=== PATIENT | male | born 1950 | race Caucasian/White ===

== ENCOUNTER 2016-11-01 08:28 | Emergency (ER) | payer OTHER, MEDICAID ==
[~2016-11-01] VITALS: Ht 180.3 cm; Wt 78.0 kg
[2016-11-01 08:33] VITALS: BP_SYST 136
[2016-11-01] MEDS ORDERED: KETOROLAC TROMETHAMINE 30 MG VIAL IVP ONE (09:00)
[2016-11-01 09:03] LABS: BILIRUBIN,URINE NEGATIVE (NEGATIVE); BLOOD, URINE NEGATIVE (NEGATIVE); CLARITY/URINE CLEAR (CLEAR); COLOR,URINE YELLOW (YELLOW); GLUCOSE,URINE NEGATIVE (NEGATIVE); KETONES,URINE NEGATIVE (NEGATIVE); LEUKOCYTE ESTERASE ,URINE NEGATIVE (NEGATIVE); NITRITE, URINE NEGATIVE (NEGATIVE); PROTEIN URINE NEGATIVE (NEGATIVE); UROBILINOGEN,URINE 0.2 (0.2-1.0)
[2016-11-01 09:07] LABS: EOSINOPHILS # (AUTO) 0.1 K/uL (0.0-0.4); EOSINOPHILS % (AUTO) 1.2 % (0.0-4.0); HEMATOCRIT 47.6 % (36-54); HEMOGLOBIN 15.9 g/dL (14.0-18.0); LYMPHOCYTES # (AUTO) 1.3 K/uL (1.0-5.5); LYMPHOCYTES % (AUTO) 26.1 % (20.5-51.5); MEAN CORPUSCULAR HEMOGLOBIN 34 pg (27-31); MEAN CORPUSCULAR HGB CONC 33 % (32-36); MEAN CORPUSCULAR VOLUME 103 fL (79.0-98.0); MONOCYTES # (AUTO) 0.3 K/uL (0.0-1.0); MONOCYTES % (AUTO) 6.6 % (1.7-9.3); PLATELET COUNT (AUTO) 199 K/uL (130-430); RED BLOOD CELL COUNT(AUTO) 4.63 MIL/uL (4.2-6.2); RED CELL DISTRIBUTION WIDTH 12.9 % (9.0-15.0); WHITE BLOOD COUNT (AUTO) 4.9 K/uL (4.8-10.8)
[2016-11-01 09:12] LABS: CALCIUM 9.1 mg/dL (8.4-11.0); CREATININE 1.12 mg/dL (0.55-1.30); POTASSIUM 4.3 mmol/L (3.5-5.1)
[2016-11-01 09:13] LABS: BASOPHILS % (AUTO) 0.7 % (0.0-2.0); NEUTROPHILS # (AUTO) 3.2 K/uL (1.8-7.7); NEUTROPHILS % (AUTO) 65.4 % (40.0-70.0)
[2016-11-01 09:18] LABS: ALBUMIN 3.9 g/dL (3.4-4.8); TOTAL BILIRUBIN 0.5 mg/dL (0.0-1.0); TOTAL PROTEIN, SERUM 7.7 g/dL (6.4-8.3)
[2016-11-01 11:00] VITALS: BP_SYST 136
== END 2016-11-01 11:00 | disposition home or self-care (01) ==
LOC: SED 08:28
DX: R10.11 Right upper quadrant pain (principal)
CPT/HCPCS: 36415; 74176; 80053; 81003; 82150; 83690; 85025; 96374; 99285; J1885

== ENCOUNTER 2019-01-31 08:07 | Emergency (ER) | payer MEDICARE, MEDICAID ==
[~2019-01-31] VITALS: Ht 177.8 cm; Wt 78.0 kg
--- NOTE | 2019-01-31 08:18 | NUR ---
Patient to ER bed 3 to gown for evaluation. Side rails up. Report given to Ish NINA.
[2019-01-31 08:20] VITALS: BP_SYST 137
--- NOTE | 2019-01-31 08:25 | NUR ---
Received report from Don. Pt is here for c/o RUQ pain radiating to left medial back for 2 days with diarrhea x1, no nausea or vomiting. 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 Pt ambulates with steady gait, no acute distress noted.
--- NOTE | 2019-01-31 08:26 | NUR ---
Dr. Padilla at bedside to assess pt.
--- NOTE | 2019-01-31 09:14 | NUR ---
Pt ambulated to restroom without distress for urine sample.
--- NOTE | 2019-01-31 09:20 | NUR ---
Pt states he did not want to have IV started and does not need pain medication at this time, pain is 4/10 at the moment. No acute distress noted.
[2019-01-31 09:38] LABS: HEMATOCRIT 42.8 % (36-54); HEMOGLOBIN 14.9 g/dL (14.0-18.0); MEAN CORPUSCULAR HEMOGLOBIN 37 pg (27-31); MEAN CORPUSCULAR HGB CONC 35 % (32-36); MEAN CORPUSCULAR VOLUME 106 fL (79.0-98.0); PLATELET COUNT (AUTO) 190 K/uL (130-430); RED BLOOD CELL COUNT(AUTO) 4.03 MIL/uL (4.2-6.2); RED CELL DISTRIBUTION WIDTH 13.7 % (9.0-15.0); WHITE BLOOD COUNT (AUTO) 3.5 K/uL (4.8-10.8)
[2019-01-31 09:39] LABS: CALCIUM 8.6 mg/dL (8.4-11.0); CREATININE 0.92 mg/dL (0.55-1.30); POTASSIUM 3.7 mmol/L (3.5-5.1)
[2019-01-31 09:45] LABS: ALBUMIN 3.5 g/dL (3.4-4.8); PROTHROMBIN TIME 10.4 SECS (9.5-12.5); TOTAL BILIRUBIN 0.5 mg/dL (0.0-1.0)
[2019-01-31 10:29] LABS: BILIRUBIN,URINE NEGATIVE (NEGATIVE); BLOOD, URINE NEGATIVE (NEGATIVE); CLARITY/URINE CLEAR (CLEAR); COLOR,URINE YELLOW (YELLOW); GLUCOSE,URINE NEGATIVE (NEGATIVE); KETONES,URINE NEGATIVE (NEGATIVE); LEUKOCYTE ESTERASE ,URINE NEGATIVE (NEGATIVE); NITRITE, URINE NEGATIVE (NEGATIVE); PH,URINE >=9.0 (5.0-8.0); PROTEIN URINE 1+ (NEGATIVE); UROBILINOGEN,URINE 0.2 (0.2-1.0)
[2019-01-31 10:39] LABS: RBC,URINE 0-3 /HPF (0-3); WBC,URINE 0-3 /HPF (0-3)
[2019-01-31 10:40] LABS: BACTERIA,URINE RARE /HPF (None Seen)
[2019-01-31 11:05] LABS: BAND % (MANUAL) 0 % (0-6); BASOPHILS % (MANUAL) 0 % (0-2); EOSINOPHILS % (MANUAL) 0 % (0-7); LYMPHOCYTES % (MANUAL) 44 % (20-46); MONOCYTES % (MANUAL) 4 % (0-11)
--- NOTE | 2019-01-31 11:49 | NUR ---
Pt went on wheelchair with tech for CT abd without contrast. No acute distress noted.
[2019-01-31 12:14] VITALS: BP_SYST 130
--- NOTE | 2019-01-31 12:14 | NUR ---
Patient given written and verbal discharge instructions and verbalizes understanding. ER MD discussed with patient the results and treatment provided. Patient in stable condition. ID arm band removed.Opportunity for questions provided and answered. Medication side effect fact sheet provided.
== END 2019-01-31 12:14 | disposition home or self-care (01) ==
LOC: SED 08:07
DX: R10.11 Right upper quadrant pain (principal)
CPT/HCPCS: 36415; 76700-TC; 80053; 81000-TC; 83690-TC; 85007; 85027; 85610-TC; 85730-TC; 99284

== ENCOUNTER 2019-02-13 09:04 | Emergency (ER) | payer MEDICARE, MEDICAID ==
[~2019-02-13] VITALS: Ht 177.8 cm; Wt 78.0 kg
[2019-02-13 09:05] VITALS: BP_SYST 135
[2019-02-13] MEDS ORDERED: LIDOCAINE 1% 10 MG/ML, 20 ML MDV INJ ONE (09:30)
[2019-02-13 10:51] LABS: BASOPHILS # (AUTO) 0.1 K/uL (0.0-0.2); BASOPHILS % (AUTO) 1.1 % (0.0-2.0); EOSINOPHILS # (AUTO) 0.1 K/uL (0.0-0.4); EOSINOPHILS % (AUTO) 2.2 % (0.0-4.0); HEMATOCRIT 44.7 % (36-54); HEMOGLOBIN 15.7 g/dL (14.0-18.0); LYMPHOCYTES # (AUTO) 1.2 K/uL (1.0-5.5); LYMPHOCYTES % (AUTO) 22.4 % (20.5-51.5); MEAN CORPUSCULAR HEMOGLOBIN 38 pg (27-31); MEAN CORPUSCULAR HGB CONC 35 % (32-36); MEAN CORPUSCULAR VOLUME 106 fL (79.0-98.0); MONOCYTES # (AUTO) 0.4 K/uL (0.0-1.0); NEUTROPHILS # (AUTO) 3.5 K/uL (1.8-7.7); NEUTROPHILS % (AUTO) 67.3 % (40.0-70.0); PLATELET COUNT (AUTO) 162 K/uL (130-430); RED CELL DISTRIBUTION WIDTH 13.7 % (9.0-15.0); WHITE BLOOD COUNT (AUTO) 5.2 K/uL (4.8-10.8)
[2019-02-13] MEDS ORDERED: IOHEXOL 100 ML IV ONE (10:56)
[2019-02-13 11:01] LABS: ANION GAP 14 (5-15); CALCIUM 9.5 mg/dL (8.4-11.0); CHLORIDE 100 mmol/L (98-107); CREATININE 1.21 mg/dL (0.55-1.30); GLUCOSE 86 mg/dL (70-99); SODIUM SERUM 137 mmol/L (136-145); UREA NITROGEN, BLOOD 7 mg/dL (8-21)
[2019-02-13] MEDS ORDERED: NACL 0.9% 1,000 ML IV ONE (11:15)
[2019-02-13 12:55] VITALS: BP_SYST 128
== END 2019-02-13 12:55 | disposition home or self-care (01) ==
LOC: SED 09:04
DX: L02.11 Cutaneous abscess of neck (principal); Z85.038 Personal history of other malignant neoplasm of large intestine
CPT/HCPCS: 10060; 36415; 70491; 85025; 80048; 99284; J2001; J7030; Q9967

== ENCOUNTER 2019-02-15 09:11 | Emergency (ER) | payer MEDICARE, MEDICAID ==
[~2019-02-15] VITALS: Ht 177.8 cm; Wt 78.0 kg
[2019-02-15 09:11] VITALS: BP_SYST 140
[2019-02-15 10:05] VITALS: BP_SYST 140
== END 2019-02-15 10:05 | disposition home or self-care (01) ==
LOC: SED 09:11
DX: Z48.01 Encounter for change or removal of surgical wound dressing (principal); Z85.038 Personal history of other malignant neoplasm of large intestine
CPT/HCPCS: 99281

== ENCOUNTER 2019-03-20 08:13 | Inpatient (IN) | payer MEDICARE, MEDICAID ==
[~2019-03-20] VITALS: Ht 190.5 cm; Wt 79.4 kg
[2019-03-20] MEDS ORDERED: ASPIRIN 325 MG TABLET PO ONE (08:30)
[2019-03-20 08:50] LABS: EOSINOPHILS # (AUTO) 0.1 K/uL (0.0-0.4); EOSINOPHILS % (AUTO) 1.4 % (0.0-4.0); HEMATOCRIT 43.3 % (36-54); HEMOGLOBIN 15.1 g/dL (14.0-18.0); LYMPHOCYTES # (AUTO) 1.8 K/uL (1.0-5.5); LYMPHOCYTES % (AUTO) 39.2 % (20.5-51.5); MEAN CORPUSCULAR HEMOGLOBIN 38 pg (27-31); MEAN CORPUSCULAR HGB CONC 35 % (32-36); MEAN CORPUSCULAR VOLUME 108 fL (79.0-98.0); MONOCYTES # (AUTO) 0.4 K/uL (0.0-1.0); MONOCYTES % (AUTO) 8.4 % (1.7-9.3); NEUTROPHILS # (AUTO) 2.3 K/uL (1.8-7.7); PLATELET COUNT (AUTO) 188 K/uL (130-430); RED CELL DISTRIBUTION WIDTH 13.9 % (9.0-15.0); WHITE BLOOD COUNT (AUTO) 4.7 K/uL (4.8-10.8)
[2019-03-20 09:04] LABS: ANION GAP 6 (5-15); CALCIUM 9.3 mg/dL (8.4-11.0); CHLORIDE 100 mmol/L (98-107); CREATININE 0.99 mg/dL (0.55-1.30); GLUCOSE 137 mg/dL (70-99); POTASSIUM 4.1 mmol/L (3.5-5.1); SODIUM SERUM 134 mmol/L (136-145); UREA NITROGEN, BLOOD 11 mg/dL (8-21)
[2019-03-20 09:10] LABS: ALANINE AMINOTRANSFERASE 45 U/L (12-78); ALBUMIN 3.6 g/dL (3.4-4.8); ASPARTATE AMINOTRANSFERASE 48 U/L (10-37); TOTAL BILIRUBIN 0.3 mg/dL (0.0-1.0)
[2019-03-20 11:22] VITALS: BP_SYST 149
[2019-03-20 11:42] VITALS: BP_SYST 149
[2019-03-20] MEDS ORDERED: PANTOPRAZOLE SODIUM 40 MG TAB PO ONE (14:00)
[2019-03-20] MEDS: MAG-AL HYDROX/SIMETH 30 ML UDC PO PRN ×2 (14:36→20:29)
[2019-03-20 16:35] VITALS: BP_SYST 123
[2019-03-20 20:00] VITALS: BP_SYST 139
[2019-03-21] MEDS ORDERED: TEMAZEPAM 15 MG CAPSULE PO PRN (00:30)
[2019-03-21 02:16] VITALS: BP_SYST 136
[2019-03-21 07:54] VITALS: BP_SYST 140
[2019-03-21] MEDS ORDERED: PANTOPRAZOLE SODIUM 40 MG TAB PO SCH (09:00)
[2019-03-21 12:11] VITALS: BP_SYST 141
[2019-03-21 12:21] VITALS: BP_SYST 141
== END 2019-03-21 12:50 | disposition home or self-care (01) | DRG 206 ==
LOC: SED 08:13 → STU 10:30
PROVIDERS: ADMIT Internal Medicine Hospice and Palliative Medicine; ATTEND Internal Medicine Hospice and Palliative Medicine
DX: M94.0 Chondrocostal junction syndrome [Tietze] (principal); I10 Essential (primary) hypertension; Z82.49 Family history of ischemic heart disease and other diseases of the circulatory system; Z85.048 Personal history of other malignant neoplasm of rectum, rectosigmoid junction, and anus
CPT/HCPCS: 36415; 71045; 80053; 82550-TC; 83880; 84484; 85025; 93005; 93017; 99285; G0378; J7030

== ENCOUNTER 2019-04-10 12:48 | Emergency (ER) | payer MEDICARE, MEDICAID ==
[~2019-04-10] VITALS: Ht 188 cm; Wt 78.0 kg
[2019-04-10 13:37] VITALS: BP_SYST 136
--- NOTE | 2019-04-10 15:12 | NUR ---
Called pt x 1 , no answer
--- NOTE | 2019-04-10 15:17 | NUR ---
Called pt x 2 no answer
--- NOTE | 2019-04-10 15:26 | NUR ---
Called pt x 3 no answer, LWBS
== END 2019-04-10 15:26 | disposition left against medical advice (07) ==
LOC: SED 12:48
DX: R10.9 Unspecified abdominal pain (principal); Z53.21 Procedure and treatment not carried out due to patient leaving prior to being seen by health care provider

== ENCOUNTER 2019-07-13 11:26 | Emergency (ER) | payer OTHER, MEDICAID ==
[~2019-07-13] VITALS: Ht 180.3 cm; Wt 78.0 kg
[2019-07-13 11:36] VITALS: BP_SYST 141
[2019-07-13 15:10] VITALS: BP_SYST 141
== END 2019-07-13 15:10 | disposition home or self-care (01) ==
LOC: SED 11:26
DX: R10.11 Right upper quadrant pain (principal); Z85.038 Personal history of other malignant neoplasm of large intestine
CPT/HCPCS: 76700-TC; 99284

== ENCOUNTER 2019-08-06 15:16 | Emergency (ER) | payer OTHER, MEDICAID ==
[~2019-08-06] VITALS: Ht 180.3 cm; Wt 78.0 kg
[2019-08-06 15:16] VITALS: BP_SYST 127
[2019-08-06] MEDS ORDERED: NACL 0.9% 1,000 ML IV ONE (15:33)
[2019-08-06] MEDS ORDERED: MORPHINE 4 MG/ML INJ. SYRINGE IVP ONE (15:45)
[2019-08-06] MEDS ORDERED: ONDANSETRON HCL 4 MG/2 ML VIAL IVP ONE (15:45)
[2019-08-06 16:34] LABS: BASOPHILS # (AUTO) 0.1 K/uL (0.0-0.2); BASOPHILS % (AUTO) 0.7 % (0.0-2.0); EOSINOPHILS # (AUTO) 0.1 K/uL (0.0-0.4); HEMATOCRIT 43.8 % (36-54); HEMOGLOBIN 15.4 g/dL (14.0-18.0); LYMPHOCYTES # (AUTO) 1.8 K/uL (1.0-5.5); LYMPHOCYTES % (AUTO) 24.2 % (20.5-51.5); MEAN CORPUSCULAR HEMOGLOBIN 38 pg (27-31); MEAN CORPUSCULAR HGB CONC 35 % (32-36); MEAN CORPUSCULAR VOLUME 107 fL (79.0-98.0); MONOCYTES # (AUTO) 0.7 K/uL (0.0-1.0); MONOCYTES % (AUTO) 9.4 % (1.7-9.3); NEUTROPHILS # (AUTO) 4.9 K/uL (1.8-7.7); NEUTROPHILS % (AUTO) 64.7 % (40.0-70.0); PLATELET COUNT (AUTO) 199 K/uL (130-430); RED BLOOD CELL COUNT(AUTO) 4.11 MIL/uL (4.2-6.2); RED CELL DISTRIBUTION WIDTH 13.8 % (9.0-15.0); WHITE BLOOD COUNT (AUTO) 7.6 K/uL (4.8-10.8)
[2019-08-06 16:39] LABS: ANION GAP 9 (5-15); CALCIUM 8.6 mg/dL (8.4-11.0); CHLORIDE 93 mmol/L (98-107); CREATININE 0.98 mg/dL (0.55-1.30); GLUCOSE 132 mg/dL (70-99); POTASSIUM 4.2 mmol/L (3.5-5.1); SODIUM SERUM 128 mmol/L (136-145); UREA NITROGEN, BLOOD 15 mg/dL (8-21)
[2019-08-06 16:40] LABS: BILIRUBIN,URINE NEGATIVE (NEGATIVE); BLOOD, URINE NEGATIVE (NEGATIVE); CLARITY/URINE CLEAR (CLEAR); COLOR,URINE YELLOW (YELLOW); GLUCOSE,URINE NEGATIVE (NEGATIVE); KETONES,URINE NEGATIVE (NEGATIVE); LEUKOCYTE ESTERASE ,URINE NEGATIVE (NEGATIVE); NITRITE, URINE NEGATIVE (NEGATIVE); PH,URINE 7.5 (5.0-8.0); PROTEIN URINE NEGATIVE (NEGATIVE); UROBILINOGEN,URINE 0.2 (0.2-1.0)
[2019-08-06 16:43] LABS: PROTHROMBIN TIME 10.1 SECS (9.5-12.5)
[2019-08-06 16:54] LABS: ALANINE AMINOTRANSFERASE 103 U/L (12-78); ALBUMIN 3.6 g/dL (3.4-4.8); AMYLASE 39 U/L (0-100); ASPARTATE AMINOTRANSFERASE 81 U/L (10-37); LIPASE 107 U/L (73-393); TOTAL BILIRUBIN 0.8 mg/dL (0.0-1.0)
[2019-08-06 17:31] VITALS: BP_SYST 137
== END 2019-08-06 17:31 | disposition home or self-care (01) ==
LOC: SED 15:16
DX: E87.1 Hypo-osmolality and hyponatremia (principal); N23 Unspecified renal colic; R74.0 Nonspecific elevation of levels of transaminase and lactic acid dehydrogenase [LDH]; R19.7 Diarrhea, unspecified; Z85.038 Personal history of other malignant neoplasm of large intestine
CPT/HCPCS: 36415; 71045; 74176; 80053; 81003; 82150; 82550; 83605; 83690; 84484; 85025; 85610; 85730; 87040; 93005; 96361; 96374; 96375; 99284; J2270; J2405; J7030

== ENCOUNTER 2019-08-29 17:07 | Emergency (ER) | payer OTHER, MEDICAID, SELFPAY ==
[~2019-08-29] VITALS: Ht 180.3 cm; Wt 78.0 kg
[2019-08-29 17:08] VITALS: BP_SYST 143
[2019-08-29 17:45] VITALS: BP_SYST 143
== END 2019-08-29 17:45 | disposition home or self-care (01) ==
LOC: EEVIPCON 17:07 → SED 17:07
DX: J02.9 Acute pharyngitis, unspecified (principal); Z85.038 Personal history of other malignant neoplasm of large intestine; Z20.828 Contact with and (suspected) exposure to other viral communicable diseases
CPT/HCPCS: 99282; U0002

== ENCOUNTER 2019-10-29 07:33 | Emergency (ER) | payer OTHER, MEDICAID ==
[~2019-10-29] VITALS: Ht 180.3 cm; Wt 78.0 kg
[2019-10-29 07:44] VITALS: BP_SYST 129
[2019-10-29] MEDS ORDERED: ONDANSETRON HCL 4 MG/2 ML VIAL IM ONE (08:30)
[2019-10-29] MEDS ORDERED: MORPHINE 4 MG/ML INJ. SYRINGE IM ONE ×2 (08:30→09:45)
[2019-10-29] MEDS ORDERED: ASPIRIN 81 MG TAB.CHEW PO ONE (08:30)
[2019-10-29 08:44] LABS: BASOPHILS % (AUTO) 0.6 % (0.0-2.0); EOSINOPHILS % (AUTO) 0.5 % (0.0-4.0); HEMATOCRIT 44.7 % (36-54); HEMOGLOBIN 15.7 g/dL (14.0-18.0); LYMPHOCYTES # (AUTO) 1.3 K/uL (1.0-5.5); LYMPHOCYTES % (AUTO) 18.4 % (20.5-51.5); MEAN CORPUSCULAR HEMOGLOBIN 37 pg (27-31); MEAN CORPUSCULAR HGB CONC 35 % (32-36); MEAN CORPUSCULAR VOLUME 106 fL (79.0-98.0); MONOCYTES # (AUTO) 0.5 K/uL (0.0-1.0); MONOCYTES % (AUTO) 7.2 % (1.7-9.3); NEUTROPHILS % (AUTO) 73.3 % (40.0-70.0); PLATELET COUNT (AUTO) 180 K/uL (130-430); RED BLOOD CELL COUNT(AUTO) 4.23 MIL/uL (4.2-6.2); RED CELL DISTRIBUTION WIDTH 13.5 % (9.0-15.0); WHITE BLOOD COUNT (AUTO) 6.9 K/uL (4.8-10.8)
[2019-10-29 08:59] LABS: ANION GAP 11 (5-15); CHLORIDE 100 mmol/L (98-107); CREATININE 0.99 mg/dL (0.55-1.30); GLUCOSE 103 mg/dL (70-99); POTASSIUM 4.1 mmol/L (3.5-5.1); SODIUM SERUM 136 mmol/L (136-145); UREA NITROGEN, BLOOD 8 mg/dL (8-21)
[2019-10-29 09:05] LABS: ALANINE AMINOTRANSFERASE 72 U/L (12-78); AMYLASE 41 U/L (0-100); ASPARTATE AMINOTRANSFERASE 44 U/L (10-37); LIPASE 88 U/L (73-393); TOTAL BILIRUBIN 0.6 mg/dL (0.0-1.0)
[2019-10-29 09:09] LABS: PROTHROMBIN TIME 9.9 SECS (9.5-12.5)
[2019-10-29] MEDS ORDERED: KETOROLAC TROMETHAMINE 60 MG/2 ML VIAL IM ONE (09:15)
[2019-10-29 09:22] LABS: BILIRUBIN,URINE NEGATIVE (NEGATIVE); BLOOD, URINE NEGATIVE (NEGATIVE); COLOR,URINE YELLOW (YELLOW); GLUCOSE,URINE NEGATIVE (NEGATIVE); KETONES,URINE TRACE (NEGATIVE); LEUKOCYTE ESTERASE ,URINE NEGATIVE (NEGATIVE); NITRITE, URINE NEGATIVE (NEGATIVE); PH,URINE 8.5 (5.0-8.0); PROTEIN URINE NEGATIVE (NEGATIVE); UROBILINOGEN,URINE 0.2 (0.2-1.0)
[2019-10-29 09:26] LABS: CLARITY/URINE SLIGHTLY HAZY (CLEAR)
[2019-10-29 09:57] VITALS: BP_SYST 128
== END 2019-10-29 09:57 | disposition home or self-care (01) ==
LOC: SED 07:33
DX: M62.830 Muscle spasm of back (principal)
CPT/HCPCS: 36415; 71045; 72131; 74176; 80053; 81003; 82150; 82550; 83690; 84484; 85025; 85610; 85730; 93005; 96372; 99284; J1885; J2270; J2405; 99285

== ENCOUNTER 2019-10-30 04:48 | Emergency (ER) | payer OTHER, MEDICAID ==
[~2019-10-30] VITALS: Ht 180.3 cm; Wt 78.0 kg
[2019-10-30 05:30] VITALS: BP_SYST 118
--- NOTE | 2019-10-30 05:30 | NUR ---
pt ambulatory to bed 7 for evaluation
--- NOTE | 2019-10-30 05:38 | NUR ---
ER Dr. Devlin at bedside examining patient.
[2019-10-30] MEDS ORDERED: CARISOPRODOL 350 MG TABLET PO ONE (06:00)
[2019-10-30] MEDS ORDERED: OXYCODONE/ACETAMINOPHEN *10*mg/325 mg TABLET PO ONE (06:00)
[2019-10-30] MEDS ORDERED: KETOROLAC TROMETHAMINE 60 MG/2 ML VIAL IM ONE (06:00)
--- NOTE | 2019-10-30 06:34 | NUR ---
Patient given written and verbal discharge instructions and verbalizes understanding. ER MD Devlin discussed with patient the results and treatment provided. Patient in stable condition. ID arm band removed. Rx of naproxin and flexeril given. Patient educated on pain management and to follow up with PMD. Pain Scale 7/10. Opportunity for questions provided and answered. Medication side effect fact sheet provided.
[2019-10-30 06:37] VITALS: BP_SYST 118
== END 2019-10-30 06:37 | disposition home or self-care (01) ==
LOC: SED 04:48
DX: S39.012A Strain of muscle, fascia and tendon of lower back, initial encounter (principal); X50.9XXA Other and unspecified overexertion or strenuous movements or postures, initial encounter; Y93.89 Activity, other specified; Y92.89 Other specified places as the place of occurrence of the external cause; Y99.8 Other external cause status
CPT/HCPCS: 96372; 99283; J1885

== ENCOUNTER 2019-11-02 03:50 | Emergency (ER) | payer OTHER, MEDICAID ==
[~2019-11-02] VITALS: Ht 180.3 cm; Wt 78.0 kg
[2019-11-02 03:55] VITALS: BP_SYST 114
--- NOTE | 2019-11-02 03:55 | NUR ---
Patient to ER bed 7 to gown for evaluation. Side rails up. Report given to LARY NINA/LOUISA NINA.
--- NOTE | 2019-11-02 03:58 | NUR ---
ER at bedside examining patient.
--- NOTE | 2019-11-02 04:00 | NUR ---
Pt presents to the ER for back pain x 5 days. Pt had multiple visits to the ER for the back pain. Pt came in 10/29/19 and 10/30/19. Pt states pain has been constant since time of injury. Prescribed Naprosyn 500mg and Flexeril 10 mg w/ no relief. Denies frequent urination, fever, abdominal pain, sob, chest pain.
[2019-11-02] MEDS ORDERED: MORPHINE 4 MG/ML INJ. SYRINGE IM ONE (04:45)
--- NOTE | 2019-11-02 05:25 | NUR ---
Pt was admitted for pain management for lower back pain to ER. Pt was advised he will need IV placement to be admitted to the hospital, he agreed after educating the patient on starting the IV placment and access for medications to be given. Two attempts were done for IV placement, after the second I asked KELLE Meza to start the IV. Patient declined IV placement and morphine IV. KELLE Kovacs went to the room to discuss IV placement to be admitted and recieve pain medication. Pt insisted oral morphine. Pt refused to KELLE Kovacs and declined to sign rashida SAEZ eloped.
[2019-11-02 05:39] LABS: BASOPHILS # (AUTO) 0.1 K/uL (0.0-0.2); EOSINOPHILS # (AUTO) 0.2 K/uL (0.0-0.4); EOSINOPHILS % (AUTO) 3.3 % (0.0-4.0); HEMOGLOBIN 14.4 g/dL (14.0-18.0); LYMPHOCYTES # (AUTO) 1.8 K/uL (1.0-5.5); MEAN CORPUSCULAR HEMOGLOBIN 37 pg (27-31); MEAN CORPUSCULAR HGB CONC 34 % (32-36); MONOCYTES # (AUTO) 0.5 K/uL (0.0-1.0); MONOCYTES % (AUTO) 8.1 % (1.7-9.3); NEUTROPHILS # (AUTO) 3.7 K/uL (1.8-7.7); NEUTROPHILS % (AUTO) 58.6 % (40.0-70.0); PLATELET COUNT (AUTO) 170 K/uL (130-430); RED BLOOD CELL COUNT(AUTO) 3.94 MIL/uL (4.2-6.2); RED CELL DISTRIBUTION WIDTH 13.3 % (9.0-15.0); WHITE BLOOD COUNT (AUTO) 6.2 K/uL (4.8-10.8)
[2019-11-02 05:43] LABS: MEAN CORPUSCULAR VOLUME 107 fL (79.0-98.0)
[2019-11-02 05:55] LABS: ANION GAP 9 (5-15); CALCIUM 8.5 mg/dL (8.4-11.0); CHLORIDE 104 mmol/L (98-107); CREATININE 1.06 mg/dL (0.55-1.30); GLUCOSE 92 mg/dL (70-99); POTASSIUM 4.4 mmol/L (3.5-5.1); SODIUM SERUM 141 mmol/L (136-145); UREA NITROGEN, BLOOD 7 mg/dL (8-21)
[2019-11-02 06:06] LABS: ALANINE AMINOTRANSFERASE 41 U/L (12-78); ALBUMIN 3.7 g/dL (3.4-4.8); ASPARTATE AMINOTRANSFERASE 35 U/L (10-37); TOTAL BILIRUBIN 0.3 mg/dL (0.0-1.0)
== END 2019-11-02 05:25 | disposition left against medical advice (07) ==
LOC: SED 03:50
DX: M54.5 Low back pain (principal); Z85.038 Personal history of other malignant neoplasm of large intestine
CPT/HCPCS: 36415; 80053; 85025; 99283

== ENCOUNTER 2019-11-10 11:48 | Emergency (ER) | payer OTHER, MEDICAID ==
[~2019-11-10] VITALS: Ht 177.8 cm; Wt 78.0 kg
[2019-11-10 11:57] VITALS: BP_SYST 160
--- NOTE | 2019-11-10 14:02 | NUR ---
PT DECIDED HE DID NOT WANT TO WAIT ANY LONGER, TOLD CAN VACUUM TESTER HE IS GOING TO LEAVE WITHOUT BEING SEEN BY MD.
== END 2019-11-10 14:02 | disposition left against medical advice (07) ==
LOC: SED 11:48
DX: M54.5 Low back pain (principal); Z53.21 Procedure and treatment not carried out due to patient leaving prior to being seen by health care provider

== ENCOUNTER 2019-11-11 05:06 | Emergency (ER) | payer OTHER, MEDICAID ==
[~2019-11-11] VITALS: Ht 177.8 cm; Wt 79.4 kg
[2019-11-11 05:10] VITALS: BP_SYST 139
--- NOTE | 2019-11-11 05:10 | NUR ---
Patient triaged and placed in waiting room. VSS and patient appears in no acute distress at this time. awaiting available bed, and MD notified of need for MSE.
[2019-11-11] MEDS ORDERED: KETOROLAC TROMETHAMINE 60 MG/2 ML VIAL IM ONE (05:45)
--- NOTE | 2019-11-11 05:58 | NUR ---
Medicated pt as ordered by Dr. Ventura.Pt tolerated well.
--- NOTE | 2019-11-11 06:00 | NUR ---
Dr Ventura examined pt the triage room.
[2019-11-11 06:08] VITALS: BP_SYST 130
--- NOTE | 2019-11-11 06:10 | NUR ---
Patient given written and verbal discharge instructions by Dr Ventura and verbalizes understanding. ER MD discussed with patient the results and treatment provided. Patient in stable condition. ID arm band removed. Rx of Naprosyn 500mg po given. Patient educated on pain management and to follow up with PMD. Pain Scale 5/10. Opportunity for questions provided and answered. Medication side effect fact sheet provided.
== END 2019-11-11 06:08 | disposition home or self-care (01) ==
LOC: SED 05:06
DX: S33.9XXA Sprain of unspecified parts of lumbar spine and pelvis, initial encounter (principal); Z85.038 Personal history of other malignant neoplasm of large intestine; X58.XXXA Exposure to other specified factors, initial encounter; Y93.89 Activity, other specified; Y92.89 Other specified places as the place of occurrence of the external cause; Y99.8 Other external cause status
CPT/HCPCS: 96372; 99283; J1885

== ENCOUNTER 2019-11-30 11:42 | Emergency (ER) | payer OTHER, MEDICAID ==
[~2019-11-30] VITALS: Ht 177.8 cm; Wt 78.0 kg
[2019-11-30 12:09] VITALS: BP_SYST 150
--- NOTE | 2019-11-30 12:09 | NUR ---
Pt placed in ER 3, requests to sit in chair.
--- NOTE | 2019-11-30 12:10 | NUR ---
Pt walked in to ER with c/o abdominal pain x1 day, radiating to the back. 5/10 pain scale. V/S stable, pt is afebrile. Currently sitting in chair at bedside, will continue to monitor.
--- NOTE | 2019-11-30 12:15 | NUR ---
ER Dr. Mirza at bedside examining patient.
--- NOTE | 2019-11-30 13:00 | NUR ---
EKG performed at BS by RN. Physician given copy of EKG for review.
--- NOTE | 2019-11-30 13:12 | NUR ---
Patient given written and verbal discharge instructions and verbalizes understanding. ER MD discussed with patient the results and treatment provided. Patient in stable condition. ID arm band removed. Rx of Naprosyn given. Patient educated on pain management and to follow up with PMD. Pain Scale 2. Opportunity for questions provided and answered. Medication side effect fact sheet provided.
[2019-11-30 13:13] VITALS: BP_SYST 150
== END 2019-11-30 13:12 | disposition home or self-care (01) ==
LOC: SED 11:42
DX: M54.9 Dorsalgia, unspecified (principal); R03.0 Elevated blood-pressure reading, without diagnosis of hypertension
CPT/HCPCS: 93005; 99283

== ENCOUNTER 2019-12-03 10:38 | Emergency (ER) | payer OTHER, MEDICAID ==
[~2019-12-03] VITALS: Ht 177.8 cm; Wt 78.0 kg
[2019-12-03 11:15] VITALS: BP_SYST 159
--- NOTE | 2019-12-03 17:58 | NUR ---
Santi Pierre RN pt LWBS at 1212.
== END 2019-12-03 12:12 | disposition left against medical advice (07) ==
LOC: SED 10:38
DX: M54.9 Dorsalgia, unspecified (principal); Z53.21 Procedure and treatment not carried out due to patient leaving prior to being seen by health care provider

== ENCOUNTER 2020-12-03 08:55 | Emergency (ER) | payer OTHER, BC ==
[~2020-12-03] VITALS: Ht 177.8 cm; Wt 77.1 kg
[2020-12-03 09:06] VITALS: BP_SYST 153
--- NOTE | 2020-12-03 09:11 | NUR ---
Patient to ER bed 3 to gown for evaluation. Side rails up. Report given to Zara NINA
--- NOTE | 2020-12-03 09:15 | NUR ---
Pt walked in to ER with c/o bilat eye irritation x4 days, 4/10 pain, denies any problems with visual acuity. No discharge noted. V/S stable, no acute distress noted.
--- NOTE | 2020-12-03 09:21 | NUR ---
ER Dr. Campos at bedside examining patient.
[2020-12-03] MEDS ORDERED: ERYEYE EACH EYE (09:26)
--- NOTE | 2020-12-03 09:40 | NUR ---
Patient given written and verbal discharge instructions and verbalizes understanding. ER MD discussed with patient the results and treatment provided. Patient in stable condition. ID arm band removed. Rx of Erythromycin eye drops given. Patient educated on pain management and to follow up with PMD. Pain Scale 0. Opportunity for questions provided and answered. Medication side effect fact sheet provided.
== END 2020-12-03 09:40 | disposition home or self-care (01) ==
LOC: EEVIPCON 08:55 → SED 08:55
DX: H01.005 Unspecified blepharitis left lower eyelid (principal); H01.002 Unspecified blepharitis right lower eyelid; Z79.899 Other long term (current) drug therapy; Z85.038 Personal history of other malignant neoplasm of large intestine
CPT/HCPCS: 99283

== ENCOUNTER 2021-02-21 08:31 | Emergency (ER) | payer OTHER, BC, SELFPAY ==
[~2021-02-21] VITALS: Ht 177.8 cm; Wt 75.7 kg
[~2021-02-21 08:31] MED LIST: ERYEYE EACH EYE
[2021-02-21 08:49] VITALS: BP_SYST 149
[2021-02-21 10:24] LABS: BASOPHILS # (AUTO) 0.1 K/uL (0.0-0.2); BASOPHILS % (AUTO) 2.1 % (0.0-2.0); EOSINOPHILS # (AUTO) 0.1 K/uL (0.0-0.4); EOSINOPHILS % (AUTO) 2.8 % (0.0-4.0); HEMATOCRIT 44.5 % (36-54); HEMOGLOBIN 15.2 g/dL (14.0-18.0); LYMPHOCYTES # (AUTO) 1.3 K/uL (1.0-5.5); LYMPHOCYTES % (AUTO) 34.2 % (20.5-51.5); MEAN CORPUSCULAR HEMOGLOBIN 37 pg (27-31); MEAN CORPUSCULAR HGB CONC 34 % (32-36); MEAN CORPUSCULAR VOLUME 108 fL (79.0-98.0); MONOCYTES # (AUTO) 0.4 K/uL (0.0-1.0); MONOCYTES % (AUTO) 9.1 % (1.7-9.3); NEUTROPHILS % (AUTO) 51.8 % (40.0-70.0); PLATELET COUNT (AUTO) 151 K/uL (130-430); RED BLOOD CELL COUNT(AUTO) 4.11 MIL/uL (4.2-6.2); WHITE BLOOD COUNT (AUTO) 3.9 K/uL (4.8-10.8)
[2021-02-21 10:30] LABS: PROTHROMBIN TIME 10.1 SECS (9.5-12.5)
[2021-02-21 10:38] LABS: ALANINE AMINOTRANSFERASE 122 U/L (12-78); ALBUMIN 3.8 g/dL (3.4-4.8); ANION GAP 11 (5-15); ASPARTATE AMINOTRANSFERASE 114 U/L (10-37); CALCIUM 9.5 mg/dL (8.4-11.0); CHLORIDE 101 mmol/L (98-107); CREATININE 0.89 mg/dL (0.55-1.30); GLUCOSE 107 mg/dL (70-99); LIPASE 100 U/L (73-393); SODIUM SERUM 140 mmol/L (136-145); TOTAL BILIRUBIN 0.4 mg/dL (0.0-1.0); UREA NITROGEN, BLOOD 7 mg/dL (8-21)
[2021-02-21 11:00] LABS: BILIRUBIN,URINE NEGATIVE (NEGATIVE); BLOOD, URINE NEGATIVE (NEGATIVE); CLARITY/URINE CLEAR (CLEAR); COLOR,URINE YELLOW (YELLOW); GLUCOSE,URINE NEGATIVE (NEGATIVE); KETONES,URINE TRACE (NEGATIVE); LEUKOCYTE ESTERASE ,URINE NEGATIVE (NEGATIVE); NITRITE, URINE NEGATIVE (NEGATIVE); PROTEIN URINE NEGATIVE (NEGATIVE); UROBILINOGEN,URINE 0.2 (0.2-1.0)
[2021-02-21 13:11] VITALS: BP_SYST 151
== END 2021-02-21 13:12 | disposition home or self-care (01) ==
LOC: SED 08:31
DX: K75.9 Inflammatory liver disease, unspecified (principal); Z20.822 Contact with and (suspected) exposure to COVID-19
CPT/HCPCS: 36415; 71045; 74021; 76376; 76700-TC; 80053; 81003; 83605; 83690; 84484; 85025; 85610-TC; 85730-TC; 87040-TC; 87086; 93005; 99285

== ENCOUNTER 2021-08-06 10:19 | Emergency (ER) | payer OTHER, MEDICAID ==
[~2021-08-06] VITALS: Ht 177.8 cm; Wt 74.8 kg
[2021-08-06 10:20] VITALS: BP_SYST 162
[2021-08-06 11:26] LABS: EOSINOPHILS # (AUTO) 0.1 K/uL (0.0-0.4); EOSINOPHILS % (AUTO) 1.9 % (0.0-4.0); HEMATOCRIT 44.2 % (36-54); HEMOGLOBIN 15.4 g/dL (14.0-18.0); LYMPHOCYTES # (AUTO) 1.6 K/uL (1.0-5.5); MEAN CORPUSCULAR HEMOGLOBIN 37 pg (27-31); MEAN CORPUSCULAR HGB CONC 35 % (32-36); MEAN CORPUSCULAR VOLUME 107 fL (79.0-98.0); MONOCYTES # (AUTO) 0.5 K/uL (0.0-1.0); MONOCYTES % (AUTO) 10.2 % (1.7-9.3); NEUTROPHILS # (AUTO) 2.4 K/uL (1.8-7.7); NEUTROPHILS % (AUTO) 51.9 % (40.0-70.0); PLATELET COUNT (AUTO) 166 K/uL (130-430); RED BLOOD CELL COUNT(AUTO) 4.15 MIL/uL (4.2-6.2); RED CELL DISTRIBUTION WIDTH 13.2 % (9.0-15.0); WHITE BLOOD COUNT (AUTO) 4.6 K/uL (4.8-10.8)
[2021-08-06 11:43] LABS: ANION GAP 9 (5-15); CALCIUM 9.8 mg/dL (8.4-11.0); CHLORIDE 101 mmol/L (98-107); CREATININE 0.93 mg/dL (0.55-1.30); GLUCOSE 115 mg/dL (70-99); POTASSIUM 4.2 mmol/L (3.5-5.1); SODIUM SERUM 134 mmol/L (136-145); UREA NITROGEN, BLOOD 10 mg/dL (8-21)
[2021-08-06 11:48] LABS: ALANINE AMINOTRANSFERASE 101 U/L (12-78); ALBUMIN 3.9 g/dL (3.4-4.8); ASPARTATE AMINOTRANSFERASE 67 U/L (10-37); LIPASE 285 U/L (73-393); TOTAL BILIRUBIN 0.3 mg/dL (0.0-1.0)
== END 2021-08-06 12:23 | disposition home or self-care (01) ==
LOC: SED 10:19
DX: R19.5 Other fecal abnormalities (principal); I10 Essential (primary) hypertension; Z79.899 Other long term (current) drug therapy
CPT/HCPCS: 36415; 80053; 82272; 83690; 85025; 85610-TC; 85730-TC; 86886; 86900; 86901; 99283

== ENCOUNTER 2022-01-06 08:57 | Emergency (ER) | payer OTHER, MEDICAID ==
[~2022-01-06] VITALS: Ht 177.8 cm; Wt 75.3 kg
[2022-01-06 09:13] VITALS: BP_SYST 148
--- NOTE | 2022-01-06 09:30 | NUR ---
BIBS WITH C/C OF SUBSTERNAL CP THAT RADIATES TO BACK AND LEFT ARM. PT STATED HE HAS ANGINA THAT STARTED ON WEDNESDAY AFTERNOON AT APPROX 1500. PT WAS SITTING WATCHING TV ON [place] AND STARTED TO FEEL CP. PT STATED HE TOOK 1/2 TAB OF 81 MG OF ASPIRIN THIS MORNING AT 0600. NO CARDIAC HISTORY. ONLY HISTORY IS COLON CA. PT RATES PAIN 2/10. DENIES ANY SOB, N/V, DIZZINESS. PT STATES "I'M AWARE OF IT, IT DOESN'T REALLY HURT BUT IT'S THERE".
--- NOTE | 2022-01-06 09:34 | NUR ---
PLACED IN BED 2
[2022-01-06 10:23] LABS: ANION GAP 9 (5-15); CALCIUM 9.6 mg/dL (8.4-11.0); CHLORIDE 101 mmol/L (98-107); CREATININE 1.03 mg/dL (0.55-1.30); GLUCOSE 110 mg/dL (70-99); POTASSIUM 4.2 mmol/L (3.5-5.1); SODIUM SERUM 137 mmol/L (136-145); UREA NITROGEN, BLOOD 8 mg/dL (8-21)
[2022-01-06 10:28] LABS: BASOPHILS # (AUTO) 0.1 K/uL (0.0-0.2); BASOPHILS % (AUTO) 1.2 % (0.0-2.0); EOSINOPHILS # (AUTO) 0.1 K/uL (0.0-0.4); HEMATOCRIT 43.2 % (36-54); HEMOGLOBIN 15.5 g/dL (14.0-18.0); LYMPHOCYTES # (AUTO) 1.4 K/uL (1.0-5.5); LYMPHOCYTES % (AUTO) 26.9 % (20.5-51.5); MEAN CORPUSCULAR HEMOGLOBIN 38 pg (27-31); MEAN CORPUSCULAR HGB CONC 36 % (32-36); MEAN CORPUSCULAR VOLUME 105 fL (79.0-98.0); MONOCYTES # (AUTO) 0.4 K/uL (0.0-1.0); MONOCYTES % (AUTO) 8.1 % (1.7-9.3); NEUTROPHILS # (AUTO) 3.3 K/uL (1.8-7.7); NEUTROPHILS % (AUTO) 62.8 % (40.0-70.0); PLATELET COUNT (AUTO) 162 K/uL (130-430); RED BLOOD CELL COUNT(AUTO) 4.12 MIL/uL (4.2-6.2); RED CELL DISTRIBUTION WIDTH 13.3 % (9.0-15.0); WHITE BLOOD COUNT (AUTO) 5.3 K/uL (4.8-10.8)
[2022-01-06 10:31] LABS: ALANINE AMINOTRANSFERASE 97 U/L (12-78); ALBUMIN 3.9 g/dL (3.4-4.8); ASPARTATE AMINOTRANSFERASE 94 U/L (10-37); TOTAL BILIRUBIN 0.6 mg/dL (0.0-1.0)
--- NOTE | 2022-01-06 10:46 | NUR ---
PT PLACED ON MOTHERS HELPER, STATES CHEST PAIN ONLY 1/10 AT THIS TIME. REAING BOOK, IN NO APPARENT DISTRESS.
[2022-01-06] MEDS ORDERED: NAPR-688 PO (11:25)
[2022-01-06 11:38] VITALS: BP_SYST 133
--- NOTE | 2022-01-06 11:38 | NUR ---
Patient given written and verbal discharge instructions and verbalizes understanding. ER MD discussed with patient the results and treatment provided. Patient in stable condition. ID arm band removed. Rx of NAPROXYN given. Patient educated on pain management and to follow up with PMD. Pain Scale . Opportunity for questions provided and answered. Medication side effect fact sheet provided.
== END 2022-01-06 11:38 | disposition home or self-care (01) ==
LOC: SED 08:57
DX: R07.9 Chest pain, unspecified (principal); M25.512 Pain in left shoulder; Z79.899 Other long term (current) drug therapy
CPT/HCPCS: 36415; 71045; 80053; 83880; 84484; 85025; 99284

== ENCOUNTER 2022-03-14 09:05 | Emergency (ER) | payer OTHER, MEDICAID ==
[~2022-03-14] VITALS: Ht 177.8 cm; Wt 75.7 kg
[~2022-03-14 09:05] MED LIST changes: +NAPR-688 PO
[2022-03-14 09:10] VITALS: BP_SYST 161
--- NOTE | 2022-03-14 09:10 | NUR ---
Placed in room 7 . Placed on playground monitor, blood pressure machine and pulse oximeter. To gown for exam. Side rails up. Report given to KELLE PALUMBO.
--- NOTE | 2022-03-14 09:11 | NUR ---
PATIENT CAME IN FROM HOME C/O SKIN TEAR AND PAIN TO RT WRIST. PATIENT STATES HE WAS WALKING OUTSIDE UP STAIRS, TRIPPED AND USED HIS RIGHT ARM TO BREAK FALL. PATIENT WENT TO [facility] AND WAS PROVIDED DRESSING. SKIN TEARS TO BE SOAKED TO REMOVE DRESSING AND CLEAN NONADHERANT DRESSING WILL BE APPLIED. PATIENT CALM AND COOPERATIVE, A&OX4. CARE WILL BE PROVIDED ORDERED.
--- NOTE | 2022-03-14 09:15 | NUR ---
ER Dr. MOSS at bedside examining patient.
[2022-03-14] MEDS ORDERED: BACITRACIN 1 GM OINT TP ONE (09:30)
--- NOTE | 2022-03-14 10:05 | NUR ---
Patient given written and verbal discharge instructions and verbalizes understanding. ER DR. AJAY FOTOE discussed with patient the results and treatment provided. Patient in stable condition. ID arm band removed. Rx of BACITRACIN given. Patient educated on pain management and to follow up with PMD. Pain Scale 1/10. Opportunity for questions provided and answered. Medication side effect fact sheet provided.
== END 2022-03-14 10:08 | disposition home or self-care (01) ==
LOC: SED 09:05
DX: S51.811A Laceration without foreign body of right forearm, initial encounter (principal); Z79.899 Other long term (current) drug therapy; W22.8XXA Striking against or struck by other objects, initial encounter; Y93.89 Activity, other specified; Y92.89 Other specified places as the place of occurrence of the external cause; Y99.8 Other external cause status
CPT/HCPCS: 99282

== ENCOUNTER 2022-03-16 09:17 | Emergency (ER) | payer OTHER, MEDICAID ==
[~2022-03-16] VITALS: Ht 177.8 cm; Wt 75.7 kg
[2022-03-16 09:26] VITALS: BP_SYST 164
--- NOTE | 2022-03-16 09:32 | NUR ---
PT CAME IN FROM HOME, STATES WHILE HE WAS MAKING COFFE, HIS WRIST/ FOREARM AVULSION STARTED TO BLEED. PT ARRIVES WITH DIRTY WRAP, NO ACTIVE BLEEING ON ARRIVAL. PT IS AMBULATORY, AAOX4, VSS
--- NOTE | 2022-03-16 09:32 | NUR ---
Patient to ER bed H1 to gown for evaluation. Side rails up.
--- NOTE | 2022-03-16 09:35 | NUR ---
ER DR. FLORENCE EXAMINING PT
[2022-03-16 09:58] VITALS: BP_SYST 164
--- NOTE | 2022-03-16 09:59 | NUR ---
Patient given written and verbal discharge instructions and verbalizes understanding. ER MD discussed with patient the results and treatment provided. Patient in stable condition. ID arm band removed. NO Rx given. Patient educated on pain management and to follow up with PMD. Pain Scale 0/10. Opportunity for questions provided and answered. Medication side effect fact sheet provided.
== END 2022-03-16 09:58 | disposition home or self-care (01) ==
LOC: SED 09:17
DX: Z48.00 Encounter for change or removal of nonsurgical wound dressing (principal); Z79.899 Other long term (current) drug therapy
CPT/HCPCS: 99281

== ENCOUNTER 2022-03-18 08:18 | Emergency (ER) | payer OTHER, MEDICAID ==
[~2022-03-18] VITALS: Ht 182.9 cm; Wt 81.6 kg
[2022-03-18 08:22] VITALS: BP_SYST 140
[2022-03-18] MEDS ORDERED: NEOM28.37 TP (08:38)
[2022-03-18] MEDS ORDERED: BACITRACIN 1 GM OINT TP ONE (08:45)
[2022-03-18 09:04] VITALS: BP_SYST 140
== END 2022-03-18 09:03 | disposition home or self-care (01) ==
LOC: SED 08:18
DX: T22.111A Burn of first degree of right forearm, initial encounter (principal); Z79.899 Other long term (current) drug therapy; X58.XXXA Exposure to other specified factors, initial encounter; Y93.89 Activity, other specified; Y92.89 Other specified places as the place of occurrence of the external cause; Y99.8 Other external cause status
CPT/HCPCS: 99282

== ENCOUNTER 2022-03-19 14:00 | Emergency (ER) | payer OTHER, MEDICAID ==
[~2022-03-19] VITALS: Ht 172.7 cm; Wt 68.0 kg
[~2022-03-19 14:00] MED LIST changes: +NEOM28.37 TP
--- NOTE | 2022-03-19 14:06 | NUR ---
Placed in room 05 . Placed on press worker helper, blood pressure machine and pulse oximeter. To gown for exam. Side rails up.
[2022-03-19 14:07] VITALS: BP_SYST 162
--- NOTE | 2022-03-19 14:13 | NUR ---
PT BIB SELF, AWAKE AND ALERT AOX 4. NO SOB OR DISTRESS. PT C/O CHEST PAIN AND PALPITATION STARTING TODAY. PT STATED PAIN WAS 7/10 BUT ONLY 2/10 IN ER. PT DENIES N/V. PT HAS HX OF HTN BUT DOES NOT TAKE ANYT MEDICATION.
[2022-03-19] MEDS ORDERED: ASPIRIN 81 MG TAB.CHEW PO ONE (14:15)
--- NOTE | 2022-03-19 14:16 | NUR ---
MD DR FOSTER AT BEDSIDE
[2022-03-19 14:35] LABS: BASOPHILS # (AUTO) 0.1 K/uL (0.0-0.2); EOSINOPHILS # (AUTO) 0.1 K/uL (0.0-0.4); EOSINOPHILS % (AUTO) 1.2 % (0.0-4.0); HEMATOCRIT 41.6 % (36-54); HEMOGLOBIN 14.8 g/dL (14.0-18.0); LYMPHOCYTES # (AUTO) 1.6 K/uL (1.0-5.5); LYMPHOCYTES % (AUTO) 22.6 % (20.5-51.5); MEAN CORPUSCULAR HEMOGLOBIN 37 pg (27-31); MEAN CORPUSCULAR HGB CONC 36 % (32-36); MEAN CORPUSCULAR VOLUME 104 fL (79.0-98.0); MONOCYTES # (AUTO) 0.5 K/uL (0.0-1.0); MONOCYTES % (AUTO) 6.8 % (1.7-9.3); NEUTROPHILS # (AUTO) 4.7 K/uL (1.8-7.7); NEUTROPHILS % (AUTO) 68.4 % (40.0-70.0); PLATELET COUNT (AUTO) 157 K/uL (130-430); RED CELL DISTRIBUTION WIDTH 12.6 % (9.0-15.0); WHITE BLOOD COUNT (AUTO) 6.9 K/uL (4.8-10.8)
[2022-03-19 14:51] LABS: ANION GAP 9 (5-15); CALCIUM 9.9 mg/dL (8.4-11.0); CHLORIDE 102 mmol/L (98-107); CREATININE 1.04 mg/dL (0.55-1.30); GLUCOSE 123 mg/dL (70-99); UREA NITROGEN, BLOOD 10 mg/dL (8-21)
[2022-03-19 14:59] LABS: ALANINE AMINOTRANSFERASE 102 U/L (12-78); ALBUMIN 4.1 g/dL (3.4-4.8); ASPARTATE AMINOTRANSFERASE 111 U/L (10-37); TOTAL BILIRUBIN 0.4 mg/dL (0.0-1.0)
--- NOTE | 2022-03-19 15:12 | NUR ---
COVID-19 SILVERIO SWAB OBTAINED, LABELED, AND SENT TO THE LAB.
[2022-03-19 17:21] VITALS: BP_SYST 162
== END 2022-03-19 17:22 | disposition home or self-care (01) ==
LOC: SED 14:00
DX: R07.89 Other chest pain (principal); R00.2 Palpitations; Z79.899 Other long term (current) drug therapy; Z20.822 Contact with and (suspected) exposure to COVID-19
CPT/HCPCS: 36415; 71045; 80053; 83880; 84484; 85025; 93005; 99285

== ENCOUNTER 2022-05-03 09:18 | Emergency (ER) | payer OTHER, MEDICAID ==
[~2022-05-03] VITALS: Ht 180.3 cm; Wt 75.7 kg
[2022-05-03 09:33] VITALS: BP_SYST 164
--- NOTE | 2022-05-03 09:36 | NUR ---
Patient to ER bed 03 to gown for evaluation. Side rails up. Report given to KELLE HENDERSON
--- NOTE | 2022-05-03 09:41 | NUR ---
ambulatory to er c/o left flank pain for 3 weeks got worse, on monitoring tech, awaiting for edp for initial assessment.
--- NOTE | 2022-05-03 09:50 | NUR ---
Edp at bedside for initial assessment.
--- NOTE | 2022-05-03 10:03 | NUR ---
Note chriskaren in EDM - 05/03/22 at 1005 by [id number] patient in nad verbalizes feeling better, awaiting for result and edp reassessment for disposition.
--- NOTE | 2022-05-03 10:05 | NUR ---
patient remains in bed awaiting for further order.
[2022-05-03 10:07] LABS: BILIRUBIN,URINE NEGATIVE (NEGATIVE); BLOOD, URINE NEGATIVE (NEGATIVE); CLARITY/URINE CLEAR (CLEAR); COLOR,URINE YELLOW (YELLOW); GLUCOSE,URINE NEGATIVE (NEGATIVE); KETONES,URINE NEGATIVE (NEGATIVE); LEUKOCYTE ESTERASE ,URINE 1+ (NEGATIVE); NITRITE, URINE NEGATIVE (NEGATIVE); PROTEIN URINE NEGATIVE (NEGATIVE); UROBILINOGEN,URINE 0.2 (0.2-1.0)
[2022-05-03 10:14] LABS: BACTERIA,URINE None Seen /HPF (None Seen); MUCUS,URINE None Seen /LPF (None Seen); RBC,URINE 0-3 /HPF (0-3)
[2022-05-03] MEDS ORDERED: ONDANSETRON HCL 4 MG/2 ML VIAL IVP ONE (10:15)
[2022-05-03] MEDS ORDERED: MAG HYDROX/AL HYDROX/SIMETH 30 ML, DICYCLOMINE HCL 20 MG, LIDOCAINE VISCOUS 2% 15ML (PO... PO ONE ×3 (10:15)
[2022-05-03 10:39] LABS: BASOPHILS % (AUTO) 1.2 % (0.0-2.0); EOSINOPHILS # (AUTO) 0.1 K/uL (0.0-0.4); EOSINOPHILS % (AUTO) 2.1 % (0.0-4.0); HEMOGLOBIN 15.3 g/dL (14.0-18.0); LYMPHOCYTES # (AUTO) 1.1 K/uL (1.0-5.5); LYMPHOCYTES % (AUTO) 27.9 % (20.5-51.5); MEAN CORPUSCULAR HEMOGLOBIN 37 pg (27-31); MEAN CORPUSCULAR HGB CONC 35 % (32-36); MEAN CORPUSCULAR VOLUME 106 fL (79.0-98.0); MONOCYTES # (AUTO) 0.3 K/uL (0.0-1.0); MONOCYTES % (AUTO) 8.9 % (1.7-9.3); NEUTROPHILS # (AUTO) 2.3 K/uL (1.8-7.7); NEUTROPHILS % (AUTO) 59.9 % (40.0-70.0); PLATELET COUNT (AUTO) 145 K/uL (130-430); RED BLOOD CELL COUNT(AUTO) 4.14 MIL/uL (4.2-6.2); RED CELL DISTRIBUTION WIDTH 12.9 % (9.0-15.0); WHITE BLOOD COUNT (AUTO) 3.8 K/uL (4.8-10.8)
[2022-05-03 10:41] LABS: ANION GAP 11 (5-15); CALCIUM 9.4 mg/dL (8.4-11.0); CHLORIDE 103 mmol/L (98-107); CREATININE 0.84 mg/dL (0.55-1.30); GLUCOSE 108 mg/dL (70-99); UREA NITROGEN, BLOOD 5 mg/dL (8-21)
[2022-05-03 10:47] LABS: ALANINE AMINOTRANSFERASE 90 U/L (12-78); ALBUMIN 3.9 g/dL (3.4-4.8); ASPARTATE AMINOTRANSFERASE 81 U/L (10-37); LIPASE 83 U/L (73-393); TOTAL BILIRUBIN 0.5 mg/dL (0.0-1.0)
--- NOTE | 2022-05-03 11:07 | NUR ---
patient taken to ct scan.
--- NOTE | 2022-05-03 11:28 | NUR ---
Patient is back from ct scan.
--- NOTE | 2022-05-03 12:12 | NUR ---
Patient at bedside for reassessment.
[2022-05-03] MEDS ORDERED: METH-634 PO (12:17)
[2022-05-03] MEDS ORDERED: TRAM50TA2 PO (12:17)
[2022-05-03] MEDS ORDERED: CEPH-548 PO (12:17)
--- NOTE | 2022-05-03 12:24 | NUR ---
all result back edp reassess patient and d/c home with instruction.
--- NOTE | 2022-05-03 12:25 | NUR ---
Patient given written and verbal discharge instructions and verbalizes understanding. ER MD discussed with patient the results and treatment provided. Patient in stable condition. ID arm band removed. IV catheter removed intact and dressing applied, no active bleeding. Rx of cephalexin/robaxin/tramadol given. Patient educated on pain management and to follow up with PMD. Pain Scale 0. Opportunity for questions provided and answered. Medication side effect fact sheet provided.
== END 2022-05-03 12:25 | disposition home or self-care (01) ==
LOC: SED 09:18
DX: S22.000A Wedge compression fracture of unspecified thoracic vertebra, initial encounter for closed fracture (principal); N39.0 Urinary tract infection, site not specified; R10.9 Unspecified abdominal pain; Z79.899 Other long term (current) drug therapy; X58.XXXA Exposure to other specified factors, initial encounter; Y93.89 Activity, other specified; Y92.89 Other specified places as the place of occurrence of the external cause; Y99.8 Other external cause status
CPT/HCPCS: 99284; 74176; 80053; 81000; 83690; 85025; 87086; 36415; 76376; J2001; J2405